=== PATIENT | female | born 1935 | race Caucasian/White ===

== ENCOUNTER → 2017-10-03 | Outpatient (CLI) | payer OTHER ==
--- NOTE | 2017-10-03 12:15 | DIAGNOSTIC IMAGING REPORT ---
DOUBLE CONTRAST UPPER GI SERIES CLINICAL HISTORY: Dysphagia. COMPARISON STUDY: None. FLUOROSCOPY TIME: 3.2 minutes. FINDINGS: 28 fluoroscopic images were obtained. Moderate esophageal dilatation is noted. No esophageal mass or stricture is identified. No hiatal hernia is identified and no reflux was elicited. Gastric fold pattern is unremarkable. No duodenal abnormalities are identified. Caliber of the opacified jejunum is normal. IMPRESSION: 1. Moderate esophageal dilatation with no distal esophageal mass or stricture identified. The findings are nonspecific but could be seen in setting of scleroderma. 2. No hiatal hernia. No reflux elicited. Electronically signed by: Brennen Stapleton M.D. 10/03/2017 12:13 PM Dictated Date/Time: 10/03/2017 12:10 PM
== END | disposition home or self-care (01) ==
LOC: C.RAD 10:48
PROVIDERS: ATTEND Family Medicine
DX: R13.10 Dysphagia, unspecified (principal); K22.8 Other specified diseases of esophagus